=== PATIENT | female | born 1975 | race Caucasian/White ===

== ENCOUNTER → 2016-06-02 | Day surgery (SDC) | payer BC ==
[~2016-06-02] VITALS: Ht 162.6 cm; Wt 88.5 kg
[~2016-06-02] MED LIST: IBUPROFEN 600 MG TAB PO SCH; KETOROLAC 60 MG/2 ML VIAL (J1885) As Ordered ONE; LIDOCAINE 1% MDV 20ML VIAL As Ordered ONE; LIDOCAINE 2% INJ 100 MG/5 ML SDV (FOR ANES.) As Ordered ONE; LR 1,000 ML IV SCH; MIDAZOLAM INJ 2 MG/2 ML VIAL (J2250) As Ordered ONE; NORCO, ANEXSIA 5/325MG TABLET (HYDROcodone/ACETAMINOPHEN) PO PRN; ONDANSETRON 4MG/2ML VIAL (J2405) As Ordered ONE; ONDANSETRON 4MG/2ML VIAL (J2405) IV PRN; PERCOCET 5MG/325MG TAB PO PRN; PROPOFOL 200 MG/20 ML VIAL As Ordered ONE; fentaNYL 100 MCG/2 ML INJECTION (J3010) As Ordered ONE; fentaNYL 100 MCG/2 ML INJECTION (J3010) IV PRN; no medications
[2016-06-02 11:37] LABS: CONTROL LINE UCG INT CTR LINE PRESENT
[2016-06-02 15:15] VITALS: BP 121/72
--- NOTE | 2016-06-03 06:13 | RO ---
DATE OF PROCEDURE: 06/02/2016 PREPROCEDURE DIAGNOSIS: Dysmenorrhea, menorrhagia. POSTPROCEDURE DIAGNOSIS: Dysmenorrhea, menorrhagia. PROCEDURE: Paracervical block, dilation and curettage (D and C), hysteroscopy, NovaSure ablation. SURGEON: Dr. Anita Diez AUDIO VIDEO TECH: ANESTHESIA: MAC with paracervical block that I did. ESTIMATED BLOOD LOSS: BRIEF DESCRIPTION OF PROCEDURE AND FINDINGS: Nora was brought to the operating room where MAC was given. She was prepped, draped and positioned, bladder emptied as routine, and then a paracervical block, a total of 20 mL of 1% lidocaine without was placed at 2, 4, 8 and 10 o'clock and 5 mL aliquots as is typical for paracervical block. We then waited a full minute for the block to set up and then the cervix was carefully dilated. These were sounded and then the cavity length of 5.5 was measured. We subsequently got width of 4.6 but at this point, we only had cavity length. We then placed the hysteroscope, visualized the endometrial cavity which was normal in appearance. There were normal tubal ostia. There were no masses or lesions. There was a slight bulging into the cavity along the patient's right side but without isolated polyp or lesion, just sort of overgrowth of the endometrium. Good sampling with the curette was undertaken and after the curettings had been taken, the NovaSure ablative device was placed. Again length was set at 5.5. Width was set at 4.6 after measuring and an uncompleted NovaSure ablation was then carried out. Estimated blood loss for the procedure was less than 5 mL. Fluid replacement was Crystalloid. Complications: None. CONDITION AND DISPOSITION: Nora tolerated the procedure well and was recovering in the recovery room in good condition.
== END | disposition home or self-care (01) ==
LOC: M SDC 10:23
PROVIDERS: ATTEND Obstetrics & Gynecology
DX: N92.0 Excessive and frequent menstruation with regular cycle (principal); N94.6 Dysmenorrhea, unspecified
CPT/HCPCS: 58563; 84703; 88305; C2618; J0690; J1885; J2250; J2405; J3010